=== PATIENT | male | born 1980 | race Caucasian/White ===

== ENCOUNTER 2018-05-28 20:09 | Emergency (ER) | payer MEDICAID, OTHER ==
[2018-05-28 21:20] LABS: URINE BLOOD (Dip) POC Negative (NEGATIVE); URINE GLUCOSE (Dip) POC Negative (NEGATIVE); URINE KETONES (Dip) POC Negative (NEGATIVE); URINE LEUKOCYTE EST (Dip) POC 1+ (NEGATIVE); URINE NITRITE (Dip) POC Negative (NEGATIVE); URINE TOTAL PROTEIN POC Negative (NEGATIVE)
[2018-05-28] MEDS: PENICILLIN G BENZ 2.4 MIL UNIT SYG IM (21:32)
[2018-05-29 15:11] LABS: RAPID PLASMA REAGIN NONREACTIVE (NR)
[2018-05-31 13:30] LABS: HSV 1 IGG ANTIBODY <0.90 index
== END 2018-05-28 22:33 | disposition home or self-care (01) ==
LOC: FTE 20:09
DX: N50.9 Disorder of male genital organs, unspecified (principal)
CPT/HCPCS: 81003; 86592; 86692; 96372; 99284-25